=== PATIENT | male | born 1975 | race Hispanic/Latino ===

== ENCOUNTER 2025-01-02 21:49 | Emergency (ER) | payer BC ==
[~2025-01-02] VITALS: Ht 167.6 cm; Wt 144.2 kg
[~2025-01-02 21:49] MED LIST: CEPH750C7 PO
[2025-01-02 21:52] VITALS: BP 147/78; PULSE 92; RESP 20; TEMP 98.4; O2SAT 98
--- NOTE | 2025-01-02 22:19 | ERN ---
ED Note History of Present Illness Stated Complaint: C/O PAIN TO RIGHT KNEE AFTER TRIPPING AND FALLING Chief Complaint: Knee Injury/Swelling Time Seen by MD: 21:53 Time Seen by Midlevel: 21:53 Dictation: The patient is a 49-year-old male with a history of hypertension who presents to the emergency department with a right knee pain and left wrist pain after an accidental trip and fall as 9:00 p.m. patient reports being up-to-date with tetanus. Denies any other injuries. Allergies: Coded Allergies: No Known Drug Allergies (Unverified Allergy, Unknown, 04/04/24) Home Meds Active Scripts Cephalexin (Cephalexin) 750 Mg Capsule, 750 MG PO TID for 10 Days, #30 CAP 0 Refills Prov:EROS CUNNINGHAM MD 04/04/24 Past Medical History Past Medical History: Hypertension Surgical History: Cholecystectomy RN Note Reviewed/Agreed w/PFSH: Yes Review of System Dictation Constitutional: Negative for fever,chills, and weight loss Eyes: Negative for injury, pain,redness, and discharge ENT: Negative for injury,pain or swelling Cardiovascular: Negative for chest pain, palpitations, and edema Respiratory: Negative for shortness of breath, cough, and wheezing, Abdomen/GI: Negative for abdominal pain, nausea, vomiting, diarrhea, and constipation Back: Negative for injury and pain : Negative for injury, bleeding and discharge MS/Extremity: Negative for injury and deformity positive for right knee pain, left wrist pain Skin: Negative for rash, and discoloration positive for abrasion to right knee Neuro: Negative for headache, weakness, numbness, tingling, and seizure Psych: Negative for suicide ideation, homicidal ideation, and hallucinations Initial Vital Sign VS Vital Signs Date Time Temp Pulse Resp B/P (MAP) Pulse Ox O2 Delivery O2 Flow Rate FiO2 01/02/25 21:52 98.4 92 20 147/78 97 Room Air 01/02/25 21:52 0 21 Physical Exam Dictation Vital Signs reviewed General Appearance: Alert, oriented x 3, no acute distress, well developed, nourished. Head and Face: non-traumatic. Eyes: PERRL, pink conjunctivas, eyelid no trauma, anterior chamber with arcus senilis. Ears: Pinnas intact and no signs of trauma or erythema ear canals clear and no discharge TM no erythema Nose: No discharge, no bleeding. Oropharynx: Mouth normal, tongue pink. pharynx clear,no erythema, tonsils no exudates, no abscesses noted, mucous membrane moist Neck: Supple, non-tender, no thyromegaly, no masses, no JVD, no bruits Breast:Deferred Chest:No tenderness, no crepitus, no paradoxical movement, no retractions Lungs:Clear, well-ventilated, symmetric, no rales, no wheezing, no rhonchi, no stridor, good breath sounds bilaterally Heart: Regular rate, regular rhythm, no murmur, no gallops Vascular: no peripheral edema, Abdomen: Soft, positive bowel sounds, nondistended, no guarding, nontender, no rebound, no masses no hepatomegaly, no splenomegaly, no Davidson's sign, no hernias. Rectal: Deferred Genital: Deferred Neurological: Normal speech, motor function intact, sensory function intact Musculoskeletal: Neck nontender, full range of motion, back nontender, full rang e of motion, Extremities: nontender, full range of motion Skin: Color pink, dry, no turgor, no rash, no lacerations, no contusions. Abrasion to right knee, mild bleeding Lymphatic: Deferred Results (Laboratory/Radiology) Laboratory/Radiology REASON: fall ORDERING PHYSICIAN: ROBERTO DILL BULL CHAIN OPERATOR PROCEDURE: WRST 3V LT - WRIST COMP 3+VWS LT EXAM: CR left Wrist, 3 View. CLINICAL HISTORY: fall COMPARISON: None provided. FINDINGS: BONES: No acute osseous abnormality. No acute fracture. JOINTS: No dislocation. The carpal bones demonstrate normal alignment. SOFT TISSUES: The soft tissues are unremarkable. IMPRESSION: No acute osseous abnormality. No acute fracture or dislocation. /[place] Signed PATIENT: ELIEZER HUBBARD MR#: [id number] : 1975 SEX: M AGE: 49 LOCATION: [facility] ORDER 13 STATUS: REG ER REPORT#: [id number] SERVICE 12 REASON: fall ORDERING PHYSICIAN: ROBERTO DILL BULL CHAIN OPERATOR PROCEDURE: KNEE 3V RT - KNEE 3VWS RT EXAM: CR right Knee, 3 View. CLINICAL HISTORY: fall COMPARISON: None provided. FINDINGS: BONES: No acute fracture or aggressive appearing osseous lesion. JOINTS: Mild tricompartmental right knee joint osteoarthritis. There is no joint effusion appreciated. SOFT TISSUES: The soft tissues are unremarkable. IMPRESSION: 1. No acute findings. 2. Mild tricompartmental right knee joint osteoarthritis. /[facility] Reviewed?: Yes ED Course ED Course Orders Procedure Category Date Status Time Knee 3vws Rt RAD 01/02/25 Resulted 22:13 Wrist Comp 3+Vws Lt RAD 01/02/25 Resulted 22:13 Wound Care (Er) CPOE 01/02/25 Transmitted 22:13 Neomy PHA 01/02/25 Complete Sulf/Bacitra/Polymyxin 22:30 Ibuprofen 600 Mg PHA 01/02/25 Complete Tablet (Motrin) 22:30 Current Medications Medications (Trade) Dose Ordered Sig/Alf Route PRN Reason Start Time Stop Time Status Last Admin Dose Admin Ibuprofen (moTRIN) 600 mg ONCE ONCE PO 01/02/25 22:30 01/02/25 22:31 DC 01/02/25 22:51 Neomycin/ Polymyxin/ Bacitracin (Triple Antibiotic Ointment) 1 appl ONCE ONCE TP 01/02/25 22:30 01/02/25 22:31 DC 01/02/25 22:26 Vital Signs Date Time Temp Pulse Resp B/P (MAP) Pulse Ox O2 Delivery O2 Flow Rate FiO2 01/02/25 21:52 98.4 92 20 147/78 98 Room Air* 0 21 01/02/25 21:52 98.4 92 20 147/78 97 Room Air Medical Decision Making MDM The patient is a 49-year-old male with a history of hypertension who presents to the emergency department with a right knee pain and left wrist pain after an accidental trip and fall as 9:00 p.m. patient reports being up-to-date with tetanus. Denies any other injuries. X-ray showed no acute fractures or dislocations. Patient's knee was cleaned. Patient was updated with tetanus. Imaging and discharge instructions discussed with the patient. Differential diagnosis: Knee contusion, knee abrasion, knee sprain, left wrist sprain Need for hospitalization: Patient does not meet criteria for hospitalization. There are no social concerns with this patient. DX & DISP Disposition: Discharge Departure Impression: Primary Impression: Abrasion, right knee, initial encounter Additional Impressions: Contusion of right knee, Fall Condition: Stable Additional Instructions: Your x-ray showed no fractures or dislocations. Keep your wound clean and dry. Do not go into any pools, beaches or lakes because this can cause an infection in decreased healing time. Monitor for any symptoms infection like abnormal drainage or fevers, erythema if this develop please follow up blood follow up with your doctor. Please follow up with your primary doctor in 1-2 days. FOLLOW-UP WITH PRIMARY CARE PROVIDER IN 1 TO 2 DAYS. TAKE MEDICATIONS DIRECTED HERE IN THE EMERGENCY ROOM. OKAY TO CONTINUE HOME MEDICATIONS UNLESS OTHERWISE DISCUSSED DURING YOUR VISIT IN THE EMERGENCY ROOM TODAY. RETURN TO YOUR NEAREST EMERGENCY ROOM IF SYMPTOMS WORSEN OR IF THERE IS NO IMPROVEMENT. CALL 911 IF YOU NEED IMMEDIATE ASSISTANCE. TAKE TYLENOL [id number] NEEDED AND IF NO CONTRAINDICATIONS ARE PRESENT. INCREASE ORAL HYDRATION. A WOUND CULTURE OR URINE CULTURE WAS ORDERED HERE IN THE EMERGENCY ROOM DEPARTMENT PLEASE FOLLOW-UP WITH PRIMARY CARE PROVIDER AND ADVISE THEM TO GET REPEAT PORTS FROM OUR FACILITY. IF YOU HAD ANY SAM WRAP/SPLINTS THAT WERE APPLIED HERE, PLEASE DO NOT REMOVE THEM UNTIL YOU SEE YOUR PRIMARY CARE OR SPECIALTY. Referrals: PARADISE BROWN JR, MD (PCP) Time of Disposition: 23:16 I have reviewed the case, and I agree with, Diagnosis and Plan ROBERTO DILL [facility] Jan 02, 2025 22:19
[2025-01-02] MEDS: NEOMY SULF/BACITRA/POLYMYXIN B 1 EACH PACKET TP ONE (22:26)
--- NOTE | 2025-01-02 23:06 | HMCIMG ---
EXAM: CR left Wrist, 3 View. CLINICAL HISTORY: fall COMPARISON: None provided. FINDINGS: BONES: No acute osseous abnormality. No acute fracture. JOINTS: No dislocation. The carpal bones demonstrate normal alignment. SOFT TISSUES: The soft tissues are unremarkable. IMPRESSION: No acute osseous abnormality. No acute fracture or dislocation. /[place]
--- NOTE | 2025-01-02 23:07 | HMCIMG ---
EXAM: CR right Knee, 3 View. CLINICAL HISTORY: fall COMPARISON: None provided. FINDINGS: BONES: No acute fracture or aggressive appearing osseous lesion. JOINTS: Mild tricompartmental right knee joint osteoarthritis. There is no joint effusion appreciated. SOFT TISSUES: The soft tissues are unremarkable. IMPRESSION: 1. No acute findings. 2. Mild tricompartmental right knee joint osteoarthritis. /[place]
== END 2025-01-02 23:47 | disposition home or self-care (01) ==
LOC: EDH 21:49
DX: S80.211A Abrasion, right knee, initial encounter (principal); S80.01XA Contusion of right knee, initial encounter; I10 Essential (primary) hypertension; Z90.49 Acquired absence of other specified parts of digestive tract; W01.0XXA Fall on same level from slipping, tripping and stumbling without subsequent striking against object, initial encounter; Y93.89 Activity, other specified; Y92.89 Other specified places as the place of occurrence of the external cause; Y99.8 Other external cause status
CPT/HCPCS: 73110; 73562; 99283